=== PATIENT | male | born 1995 | race Caucasian/White ===

== ENCOUNTER 2018-09-05 11:34 | Emergency (ER) | payer OTHER ==
[~2018-09-05] VITALS: Ht 180.3 cm; Wt 92.5 kg
[2018-09-05 11:40] VITALS: BP_SYST 106
[2018-09-05 12:24] LABS: BILIRUBIN,URINE NEGATIVE (NEGATIVE); BLOOD, URINE NEGATIVE (NEGATIVE); CLARITY/URINE CLEAR (CLEAR); COLOR,URINE YELLOW (YELLOW); GLUCOSE,URINE NEGATIVE (NEGATIVE); KETONES,URINE 1+ (NEGATIVE); LEUKOCYTE ESTERASE ,URINE NEGATIVE (NEGATIVE); NITRITE, URINE NEGATIVE (NEGATIVE); PH,URINE 5.5 (5.0-8.0); PROTEIN URINE NEGATIVE (NEGATIVE); UROBILINOGEN,URINE 0.2 (0.2-1.0)
[2018-09-05 12:45] LABS: BASOPHILS % (AUTO) 0.7 % (0.0-2.0); EOSINOPHILS # (AUTO) 0.4 K/uL (0.0-0.4); EOSINOPHILS % (AUTO) 5.4 % (0.0-4.0); HEMATOCRIT 46.8 % (36-54); HEMOGLOBIN 15.8 g/dL (14.0-18.0); LYMPHOCYTES # (AUTO) 1.1 K/uL (1.0-5.5); LYMPHOCYTES % (AUTO) 15.9 % (20.5-51.5); MEAN CORPUSCULAR HEMOGLOBIN 30 pg (27-31); MEAN CORPUSCULAR HGB CONC 34 % (32-36); MEAN CORPUSCULAR VOLUME 89 fL (79.0-98.0); MONOCYTES % (AUTO) 14.9 % (1.7-9.3); NEUTROPHILS # (AUTO) 4.2 K/uL (1.8-7.7); NEUTROPHILS % (AUTO) 63.1 % (40.0-70.0); PLATELET COUNT (AUTO) 309 K/uL (130-430); RED BLOOD CELL COUNT(AUTO) 5.27 MIL/uL (4.2-6.2); RED CELL DISTRIBUTION WIDTH 13.2 % (9.0-15.0); WHITE BLOOD COUNT (AUTO) 6.6 K/uL (4.8-10.8)
[2018-09-05 12:47] LABS: CALCIUM 9.6 mg/dL (8.4-11.0); CREATININE 1.04 mg/dL (0.55-1.30); POTASSIUM 3.6 mmol/L (3.5-5.1)
[2018-09-05 12:52] LABS: ALBUMIN 3.9 g/dL (3.4-4.8); TOTAL BILIRUBIN 0.5 mg/dL (0.0-1.0)
[2018-09-05 13:45] VITALS: BP_SYST 106
== END 2018-09-05 13:45 | disposition home or self-care (01) ==
LOC: SED 11:34
DX: K51.90 Ulcerative colitis, unspecified, without complications (principal)
CPT/HCPCS: 36415; 80053; 81003; 83690-TC; 85025; 99284

== ENCOUNTER 2023-12-11 15:33 | Inpatient (IN) | payer OTHER ==
[~2023-12-11] VITALS: Ht 180.3 cm; Wt 108.4 kg
[2023-12-11 15:46] VITALS: BP_SYST 117; PULSE 101; RESP 16; TEMP 98.9; O2SAT 98
[2023-12-11] MEDS: KETOROLAC TROMETHAMINE 30 MG VIAL IVP ONE (16:15)
[2023-12-11 16:27] LABS: BILIRUBIN,URINE NEGATIVE (NEGATIVE); CLARITY/URINE CLEAR (CLEAR); COLOR,URINE YELLOW (YELLOW); GLUCOSE,URINE NEGATIVE (NEGATIVE); KETONES,URINE NEGATIVE (NEGATIVE); LEUKOCYTE ESTERASE ,URINE NEGATIVE (NEGATIVE); NITRITE, URINE NEGATIVE (NEGATIVE); PROTEIN URINE 1+ (NEGATIVE); UROBILINOGEN,URINE 0.2 (0.2-1.0)
[2023-12-11 16:30] LABS: BLOOD, URINE TRACE (NEGATIVE)
[2023-12-11 16:35] LABS: BACTERIA,URINE FEW /HPF (None Seen); MUCUS,URINE 1+ /LPF (None Seen); RBC,URINE NONE SEEN /HPF (0-3); WBC,URINE 0-3 /HPF (0-3)
[2023-12-11] MEDS: ONDANSETRON HCL 4 MG/2 ML VIAL IVP ONE (16:46)
[2023-12-11] MEDS: NACL 0.9% 1,000 ML IV ONE ×2 (16:46)
[2023-12-11 16:51] LABS: BASOPHILS # (AUTO) 0.1 K/uL (0.0-0.2); BASOPHILS % (AUTO) 0.7 % (0.0-2.0); EOSINOPHILS # (AUTO) 0.9 K/uL (0.0-0.4); EOSINOPHILS % (AUTO) 7.5 % (0.0-4.0); HEMATOCRIT 43.6 % (36-54); HEMOGLOBIN 14.7 g/dL (14.0-18.0); LYMPHOCYTES # (AUTO) 1.2 K/uL (1.0-5.5); LYMPHOCYTES % (AUTO) 10.8 % (20.5-51.5); MEAN CORPUSCULAR HEMOGLOBIN 28 pg (27-31); MEAN CORPUSCULAR HGB CONC 34 % (32-36); MEAN CORPUSCULAR VOLUME 83 fL (79.0-98.0); MONOCYTES % (AUTO) 18.1 % (1.7-9.3); NEUTROPHILS # (AUTO) 7.1 K/uL (1.8-7.7); NEUTROPHILS % (AUTO) 62.9 % (40.0-70.0); PLATELET COUNT (AUTO) 309 K/uL (130-430); RED BLOOD CELL COUNT(AUTO) 5.26 MIL/uL (4.2-6.2); RED CELL DISTRIBUTION WIDTH 14.8 % (9.0-15.0); WHITE BLOOD COUNT (AUTO) 11.3 K/uL (4.8-10.8)
[2023-12-11 17:03] LABS: PROTHROMBIN TIME 10.7 SECS (9.5-12.5)
[2023-12-11 17:05] LABS: ALBUMIN 3.3 g/dL (3.4-4.8); BILIRUBIN,DIRECT 0.2 mg/dL (0.0-0.3); CALCIUM 8.9 mg/dL (8.4-11.0); CREATININE 1.23 mg/dL (0.55-1.30); POTASSIUM 3.8 mmol/L (3.5-5.1); TOTAL BILIRUBIN 0.8 mg/dL (0.0-1.0); TOTAL PROTEIN, SERUM 8.1 g/dL (6.4-8.3)
[2023-12-11] MEDS: LR 1,000 ML IV SCH (20:10)
[2023-12-11] MEDS: MESALAMINE 250 MG CAPSULE.SA PO SCH (21:00)
[2023-12-11 22:17] VITALS: BP_SYST 115; PULSE 72; RESP 20; TEMP 98; O2SAT 97
[2023-12-11] MEDS: PIPERACILLIN/TAZOBACTAM 3.375 GM/VIAL (ZOSYN) IV ONE (23:15)
[2023-12-11] MEDS: PIPERACILLIN/TAZO 3.375 GM in D5W 50 ML IV SCH (23:31)
[2023-12-12 00:17] VITALS: BP_SYST 121; PULSE 89; RESP 17; TEMP 98.7; O2SAT 20
[2023-12-12] MEDS: PIPERACILLIN/TAZOBACTAM 3.375 GM/VIAL (ZOSYN) IV ONE ×2 (01:51→01:54)
[2023-12-12 08:00] VITALS: O2SAT 97
[2023-12-12 08:22] VITALS: BP_SYST 124; PULSE 96; RESP 14; TEMP 98.8; O2SAT 94
[2023-12-12 09:04] LABS: EOSINOPHILS # (AUTO) 0.7 K/uL (0.0-0.4); MONOCYTES # (AUTO) 1.8 K/uL (0.0-1.0); MONOCYTES % (AUTO) 18.4 % (1.7-9.3); WHITE BLOOD COUNT (AUTO) 9.7 K/uL (4.8-10.8)
[2023-12-12 09:06] LABS: BASOPHILS # (AUTO) 0.1 K/uL (0.0-0.2); BASOPHILS % (AUTO) 0.7 % (0.0-2.0); EOSINOPHILS % (AUTO) 7.3 % (0.0-4.0); HEMATOCRIT 38.9 % (36-54); HEMOGLOBIN 12.9 g/dL (14.0-18.0); LYMPHOCYTES % (AUTO) 10.1 % (20.5-51.5); MEAN CORPUSCULAR HEMOGLOBIN 28 pg (27-31); MEAN CORPUSCULAR HGB CONC 33 % (32-36); MEAN CORPUSCULAR VOLUME 83 fL (79.0-98.0); NEUTROPHILS # (AUTO) 6.2 K/uL (1.8-7.7); NEUTROPHILS % (AUTO) 63.5 % (40.0-70.0); PLATELET COUNT (AUTO) 274 K/uL (130-430); RED BLOOD CELL COUNT(AUTO) 4.69 MIL/uL (4.2-6.2)
[2023-12-12] MEDS: CHOLECALCIFEROL (VITAMIN D3) 5,000 UNIT TABLET PO SCH (09:11)
[2023-12-12] MEDS: MESALAMINE 250 MG CAPSULE.SA PO SCH (09:12)
[2023-12-12 11:30] LABS: ALBUMIN 2.7 g/dL (3.4-4.8); CALCIUM 8.7 mg/dL (8.4-11.0); CREATININE 1.26 mg/dL (0.55-1.30); POTASSIUM 4.3 mmol/L (3.5-5.1); TOTAL BILIRUBIN 0.8 mg/dL (0.0-1.0); TOTAL PROTEIN, SERUM 6.8 g/dL (6.4-8.3)
[2023-12-12 12:15] VITALS: BP_SYST 115; PULSE 94; RESP 15; TEMP 98.5; O2SAT 98
[2023-12-12] MEDS: methylPREDNISolone SOD SUCC/PF 62.5 MG/ML VIAL IVP SCH (14:34)
[2023-12-12] MEDS: LACTOBACILLUS RHAMNOSUS GG 1 CAP CAPSULE PO SCH (16:05)
[2023-12-12 16:45] VITALS: BP_SYST 110; PULSE 84; RESP 16; TEMP 98.4; O2SAT 99
[2023-12-12 20:00] VITALS: BP_SYST 116; PULSE 71; RESP 20; TEMP 97.7; O2SAT 95
[2023-12-13 01:30] VITALS: RESP 20; TEMP 97.2
[2023-12-13 08:00] VITALS: BP_SYST 120; PULSE 73; RESP 20; TEMP 96.9; O2SAT 100
[2023-12-13 08:36] LABS: BASOPHILS % (AUTO) 0.1 % (0.0-2.0); EOSINOPHILS % (AUTO) 0.1 % (0.0-4.0); HEMATOCRIT 41.1 % (36-54); HEMOGLOBIN 13.8 g/dL (14.0-18.0); LYMPHOCYTES # (AUTO) 0.8 K/uL (1.0-5.5); LYMPHOCYTES % (AUTO) 8.9 % (20.5-51.5); MEAN CORPUSCULAR HEMOGLOBIN 28 pg (27-31); MEAN CORPUSCULAR HGB CONC 34 % (32-36); MEAN CORPUSCULAR VOLUME 83 fL (79.0-98.0); MONOCYTES # (AUTO) 0.4 K/uL (0.0-1.0); MONOCYTES % (AUTO) 4.5 % (1.7-9.3); NEUTROPHILS # (AUTO) 7.7 K/uL (1.8-7.7); NEUTROPHILS % (AUTO) 86.4 % (40.0-70.0); PLATELET COUNT (AUTO) 310 K/uL (130-430); RED BLOOD CELL COUNT(AUTO) 4.98 MIL/uL (4.2-6.2); RED CELL DISTRIBUTION WIDTH 14.6 % (9.0-15.0); WHITE BLOOD COUNT (AUTO) 8.9 K/uL (4.8-10.8)
[2023-12-13 08:37] LABS: TOTAL IRON BIND. CAPACITY 248 ug/dL (250-450)
[2023-12-13 08:39] LABS: CALCIUM 9.3 mg/dL (8.4-11.0); CREATININE 0.95 mg/dL (0.55-1.30); POTASSIUM 4.1 mmol/L (3.5-5.1)
[2023-12-13 09:00] VITALS: O2SAT 100
[2023-12-13 11:00] VITALS: BP_SYST 121; PULSE 69; RESP 16; TEMP 96.3; O2SAT 97
[2023-12-13 15:43] VITALS: BP_SYST 113; PULSE 75; RESP 16; TEMP 96.7; O2SAT 96
[2023-12-13 20:00] VITALS: BP_SYST 120; PULSE 61; RESP 20; TEMP 97; O2SAT 61; O2SAT 97
[2023-12-13] MEDS: predniSONE 20 MG TABLET PO SCH (21:32)
[2023-12-14] VITALS (7 sets, daily range): BP systolic 120–121; PULSE 61–93; RESP 14–20; TEMP 96.6–98.2; O2SAT 95–98
[2023-12-14 07:19] LABS: BASOPHILS % (AUTO) 0.1 % (0.0-2.0); HEMATOCRIT 39.6 % (36-54); HEMOGLOBIN 13.2 g/dL (14.0-18.0); LYMPHOCYTES # (AUTO) 0.8 K/uL (1.0-5.5); LYMPHOCYTES % (AUTO) 6.2 % (20.5-51.5); MEAN CORPUSCULAR HEMOGLOBIN 27 pg (27-31); MEAN CORPUSCULAR HGB CONC 33 % (32-36); MEAN CORPUSCULAR VOLUME 83 fL (79.0-98.0); MONOCYTES # (AUTO) 0.9 K/uL (0.0-1.0); MONOCYTES % (AUTO) 7.3 % (1.7-9.3); NEUTROPHILS % (AUTO) 86.4 % (40.0-70.0); PLATELET COUNT (AUTO) 327 K/uL (130-430); RED CELL DISTRIBUTION WIDTH 14.6 % (9.0-15.0); WHITE BLOOD COUNT (AUTO) 12.7 K/uL (4.8-10.8)
[2023-12-14 07:28] LABS: ALBUMIN 2.7 g/dL (3.4-4.8); POTASSIUM 4.3 mmol/L (3.5-5.1); TOTAL BILIRUBIN 0.2 mg/dL (0.0-1.0); TOTAL PROTEIN, SERUM 7.2 g/dL (6.4-8.3)
[2023-12-15] VITALS (8 sets, daily range): BP systolic 108–126; PULSE 67–74; RESP 15–20; TEMP 96.8–98.9; O2SAT 96–99
[2023-12-15 07:15] LABS: EOSINOPHILS % (AUTO) 0.1 % (0.0-4.0); HEMATOCRIT 38.1 % (36-54); HEMOGLOBIN 12.7 g/dL (14.0-18.0); LYMPHOCYTES # (AUTO) 0.8 K/uL (1.0-5.5); LYMPHOCYTES % (AUTO) 9.1 % (20.5-51.5); MEAN CORPUSCULAR HEMOGLOBIN 28 pg (27-31); MEAN CORPUSCULAR HGB CONC 33 % (32-36); MEAN CORPUSCULAR VOLUME 82 fL (79.0-98.0); MONOCYTES % (AUTO) 11.4 % (1.7-9.3); NEUTROPHILS # (AUTO) 6.9 K/uL (1.8-7.7); NEUTROPHILS % (AUTO) 79.4 % (40.0-70.0); PLATELET COUNT (AUTO) 329 K/uL (130-430); RED BLOOD CELL COUNT(AUTO) 4.62 MIL/uL (4.2-6.2); RED CELL DISTRIBUTION WIDTH 14.9 % (9.0-15.0); WHITE BLOOD COUNT (AUTO) 8.7 K/uL (4.8-10.8)
[2023-12-15 07:41] LABS: ALBUMIN 2.5 g/dL (3.4-4.8); CALCIUM 8.5 mg/dL (8.4-11.0); CREATININE 1.09 mg/dL (0.55-1.30); POTASSIUM 4.2 mmol/L (3.5-5.1); TOTAL BILIRUBIN 0.4 mg/dL (0.0-1.0); TOTAL PROTEIN, SERUM 6.7 g/dL (6.4-8.3)
[2023-12-16 01:30] VITALS: RESP 20; TEMP 97; O2SAT 99
[2023-12-16 07:45] VITALS: BP_SYST 103; PULSE 71; RESP 16; TEMP 98.7; O2SAT 96
[2023-12-16 12:39] VITALS: BP_SYST 112; PULSE 74; RESP 16; TEMP 96.9; O2SAT 100
[2023-12-16 16:32] VITALS: BP_SYST 114; PULSE 67; RESP 16; TEMP 97.3; O2SAT 96
[2023-12-16] MEDS ORDERED: CHOL500013 PO (17:17)
[2023-12-16] MEDS ORDERED: PRED20TA PO (17:17)
[2023-12-16] MEDS ORDERED: LACT1CAP57 PO (17:17)
[2023-12-16] MEDS ORDERED: PEN250 PO (17:20)
[2023-12-16] MEDS ORDERED: METR-343 PO (17:21)
[2023-12-16 18:33] VITALS: BP_SYST 114; PULSE 67; RESP 16; TEMP 97.3; O2SAT 96
== END 2023-12-16 19:40 | disposition home or self-care (01) | DRG 386 ==
LOC: SED 15:33 → SMU 19:03
PROVIDERS: ADMIT Internal Medicine; ATTEND Internal Medicine
DX: K51.911 Ulcerative colitis, unspecified with rectal bleeding (principal); D62 Acute posthemorrhagic anemia; E44.1 Mild protein-calorie malnutrition; E66.9 Obesity, unspecified; Z68.33 Body mass index [BMI] 33.0-33.9, adult
CPT/HCPCS: 36415; 80048; 80053; 80076; 81000; 81001; 81015; 83037; 83540; 83550; 83690; 85025; 85610; 85730; 87040; 87045-TC; 87046; 87177; 87230; 99285; J2405; J2543; J2930; J7060; J7512

== ENCOUNTER 2023-12-17 12:56 | Emergency (ER) | payer OTHER ==
[~2023-12-17 12:56] MED LIST: CHOL500013 PO; LACT1CAP57 PO; METR-343 PO; PEN250 PO; PRED20TA PO
== END 2023-12-17 13:05 | disposition left against medical advice (07) ==
LOC: SED 12:56
DX: R10.9 Unspecified abdominal pain (principal); Z53.21 Procedure and treatment not carried out due to patient leaving prior to being seen by health care provider; Z79.899 Other long term (current) drug therapy; Z79.2 Long term (current) use of antibiotics